=== PATIENT | female | born 1990 | race Caucasian/White ===

== ENCOUNTER 2019-04-18 17:37 | Emergency (ER) | payer OTHER ==
--- NOTE | 2019-04-18 18:24 | EDM.PDOC ---
ED HPI GENERAL MEDICAL PROBLEM - General Chief Complaint: Lower Extremity Injury/Pain Stated Complaint: RIGHT FOOT INJURY Time Seen by Provider: 04/18/19 17:43 Source of Information: Reports: Patient, RN Notes Reviewed History Limitations: Reports: No Limitations - History of Present Illness INITIAL COMMENTS - FREE TEXT/NARRATIVE: Patient is a 29-year-old female who presents to the ED for the evaluation of the right foot injury. The patient states that she was outside walking her dog in an open field when another dog came over the hill and she had to run after her dog. She ended up tripping and falling while she was wearing flip-flops and could walk on the foot initially. But after the initial injury she is experiencing increased pain with any sort of ambulation and noticed some mild swelling to the right lateral mid foot. She still can wiggle her toes however she states with rest the pain is a 1 out of 10, and was walking the pain is a 7 out of 10. She did take 800 mg ibuprofen at around 4:00 for this and was icing the area. She presents to the ER just to make sure nothing is broken. She states is no chance of at this time. Right Feet Pain Score (Numeric/FACES): 6 - Related Data Allergies Allergy/AdvReac Type Severity Reaction Status Date / Time No Known Allergies Allergy Verified 04/18/19 17:44 Home Meds: Home Meds Cetirizine [ZyrTEC] 10 mg PO DAILY 04/18/19 [History] Past Medical History - Past Health History Medical/Surgical History: Denies Medical/Surgical History Social & Family History - Tobacco Use Smoking Status *Q: Never Smoker - Caffeine Use Caffeine Use: Reports: None - Recreational Drug Use Recreational Drug Use: No Review of Systems - Review of Systems Review Of Systems: ROS reveals no pertinent complaints other than HPI. Skin: Reports: Bruising (R lateral mid foot with hematoma) Neurological: Denies: Numbness, Tingling Psychiatric: Reports: No Symptoms ED EXAM, GENERAL - Physical Exam Exam: See Below Exam Limited By: No Limitations General Appearance: Alert, WD/WN, No Apparent Distress Eye Exam: Bilateral Eye: EOMI, Normal Inspection, PERRL Throat/Mouth: Normal Inspection, Normal Lips, Normal Teeth, Normal Gums, Normal Oropharynx, Normal Voice, No Airway Compromise Head: Atraumatic, Normocephalic Neck: Normal Inspection Respiratory/Chest: No Respiratory Distress, Lungs Clear, Normal Breath Sounds, No Accessory Muscle Use, Chest Non-Tender Cardiovascular: Normal Peripheral Pulses, Regular Rate, Rhythm, No Murmur Peripheral Pulses: 3+: Dorsalis Pedis (L), Dorsalis Pedis (R) Extremities: Normal Capillary Refill, Other (area of swelling to R lateral mid foot, this is painful upon palpation.) Neurological: Alert, Oriented, Normal Cognition, No Motor/Sensory Deficits Psychiatric: Normal Affect, Normal Mood Skin Exam: Warm, Dry, Intact, Normal Color, No Rash Course - Vital Signs Last Recorded V/S: Last Vital Signs Temp 97.8 F 04/18/19 17:42 Pulse 118 H 04/18/19 17:42 Resp 16 04/18/19 17:42 BP 138/82 04/18/19 17:42 Pulse Ox 97 04/18/19 17:42 - Orders/Labs/Meds Orders: Active Orders 24 hr Category Date Time Status Foot 2V Rt [CR] Stat Exams 04/18/19 17:55 Taken - Re-Assessments/Exams Free Text/Narrative Re-Assessment/Exam: 04/18/19 18:25 Patient presents to the ED for a right foot injury. Did order x-rays for evaluation of this, these reviewed by myself and Dr. Bauer and do not demonstrate any sort of acute fracture or bony abnormality at this time. We will likely discharge the patient home with general recommendations. Departure - Departure Time of Disposition: 18:25 Disposition: Home, Self-Care 01 Condition: Fair Clinical Impression: Right foot pain Right foot injury Qualifiers: Encounter type: initial encounter Qualified Code(s): S99.921A - Unspecified injury of right foot, initial encounter - Discharge Information *PRESCRIPTION DRUG MONITORING PROGRAM REVIEWED*: No *COPY OF PRESCRIPTION DRUG MONITORING REPORT IN PATIENT MATT: No Instructions: Musculoskeletal Pain Referrals: PCP,None [Primary Care Provider] - Forms: ED Department Discharge, ED Return to Work/School Form Additional Instructions: You have been evaluated in the ED for your right foot injury. Your x-ray demonstrated no acute fracture or bony abnormality. Please use ice as tolerated to the affected area. Please try to elevate the affected area to relieve swelling. Keep the area [place] wrapped so that this helps with the swelling as well. You may take Tylenol 500 mg or ibuprofen 600mg q6 hrs for pain relief. Please do so until you have a tolerable level of pain with activity. Do not exceed 4000mg Tylenol or 3200mg ibuprofen in a 24 hour time period. Please return to ED if your symptoms should change or worsen. - My Orders Last 24 Hours: My Active Orders 04/18/19 17:55 Foot 2V Rt [CR] Stat - Assessment/Plan Last 24 Hours: My Active Orders 04/18/19 17:55 Foot 2V Rt [CR] Stat
--- NOTE | 2019-04-19 08:11 | CR ---
Right foot: Two views of the right foot were obtained. Comparison: No previous study. Unfused os navicularis is noted. Joint spaces are maintained. No acute fracture or other bony abnormality is seen. Impression: 1. Unfused os navicularis which is considered a normal variant. 2. Two-view right foot exam is otherwise unremarkable. Diagnostic code #2
== END 2019-04-18 19:08 | disposition home or self-care (01) ==
LOC: JD.ED 17:37
DX: S99.921A Unspecified injury of right foot, initial encounter (principal); W01.0XXA Fall on same level from slipping, tripping and stumbling without subsequent striking against object, initial encounter
CPT/HCPCS: 73620-26-RT; 73620-RT; 99282; 99283-25